=== PATIENT | female | born 1985 | race Caucasian/White ===

== ENCOUNTER 2023-01-05 04:40 | Emergency (ER) | payer OTHER ==
[2023-01-05 04:52] VITALS: RESP 16
--- NOTE | 2023-01-05 06:28 | ED ---
Extremity Problem HPI - General Chief complaint: Extremity Problem,Nontraumatic Stated complaint: Pulled Muscle Left leg - [facility] Time Seen by Provider: 01/05/23 06:27 Source: patient, RN notes reviewed Mode of arrival: wheelchair Limitations: no limitations - History of Present Illness Initial comments: This a 37-year-old female presents emergency Department chief complaint left calf pain. Patient states she was going up some larger metal steps when she went to push off and felt a sharp pain radiating up her leg. Patient states it's more calf down towards her Achilles denies any foot pain no ankle pain otherwise. Denies denies neck and sensation. Patient states she has full range of motion she has no pain at rest. - Related Data Previous Rx's Medication Instructions Recorded Ibuprofen [Motrin] 600 mg PO Q8HR PRN #20 tab 01/05/23 Allergies Allergy/AdvReac Type Severity Reaction Status Date / Time No Known Allergies Allergy Verified 01/05/23 04:52 Review of Systems ROS Statement: Those systems with pertinent positive or pertinent negative responses have been documented in the HPI. ROS Other: All systems not noted in ROS Statement are negative. Past Medical History Past Medical History: No Reported History History of Any Multi-Drug Resistant Organisms: None Reported Past Surgical History: Adenoidectomy Past Psychological History: No Psychological Hx Reported Smoking Status: Never smoker Past Alcohol Use History: Occasional Past Drug Use History: None Reported General Exam - General Exam Comments Initial Comments: Visual Physical Exam Vital signs reviewed General: Well-appearing, nontoxic, no acute distress. Head: Normocephalic, atraumatic Eyes: PERRLA, EOMI ENT: Airway patent Chest: Nonlabored breathing Skin: No visual rash, normal skin tone Neuro: Alert and oriented 3 Musculoskeletal: No gross abnormalities Course Vital Signs 01/05/23 04:47 Temperature 98.0 F Pulse Rate 67 Respiratory 16 Rate Blood Pressure 135/90 O2 Sat by Pulse 99 Oximetry Medical Decision Making - Medical Decision Making Was pt. sent in by a medical professional or institution (Dr. PA, FELLMONGERING MACHINE OPERATOR, urgent care, hospital, or halfway...) When possible be specific @ -No Did you speak to anyone other than the patient for history (EMS, parent, family, police, friend...)? What history was obtained from this source @ -No Did you review nursing and triage notes (agree or disagree)? Why? @ -I reviewed and agree with nursing and triage notes Were old charts reviewed (outside hosp., previous admission, EMS record, old EKG, old radiological studies, urgent care reports/EKG's, halfway records)? Report findings @ -No old charts were reviewed Differential Diagnosis (chest pain, altered mental status, abdominal pain women, abdominal pain men, vaginal bleeding, weakness, fever, dyspnea, syncope, headache, dizziness, GI bleed, back pain, seizure, CVA, palpatations, mental health, musculoskeletal)? @ -[calf strain, calf rupture, EKG interpreted by me (3pts min.). @ -As above X-rays interpreted by me (1pt min.). @ -X-ray shows calcaneus spur, otherwise no acute process of the tib-fib or foot CT interpreted by me (1pt min.). @ -None done U/S interpreted by me (1pt. min.). @ -None done What testing was considered but not performed or refused? (CT, X-rays, U/S, labs)? Why? @ -None What meds were considered but not given or refused? Why? @ -None Did you discuss the management of the patient with other professionals (professionals i.e. , PA, FELLMONGERING MACHINE OPERATOR, lab, RT, psych nurse, social media intern, dough cutting machine operator, teacher, complaint evaluation officer, case investigator)? Give summary @ -No Was smoking cessation discussed for >3mins.? @ -No Was critical care preformed (if so, how long)? @ -No Were there social determinants of health that impacted care today? How? (Homelessness, low income, unemployed, alcoholism, drug addiction, transportation, low edu. Level, literacy, decrease access to med. care, senior care, rehab)? @ -No Was there de-escalation of care discussed even if they declined (Discuss DNR or withdrawal of care, Hospice)? DNR status @ -No What co-morbidities impacted this encounter? (DM, HTN, Smoking, COPD, CAD, Cancer, CVA, ARF, Chemo, Hep., AIDS, mental health diagnosis, sleep apnea, morbid obesity)? @ -None Was patient admitted / discharged? Hospital course, mention meds given and route, prescriptions, significant lab abnormalities, going to OR and other pertinent info. @ -Discharge patient has good strength, normal range of motion patient has gastrocnemius strain, possible soleus injury, there is no evidence of complete rupture. Patient will follow-up with orthopedics, [facility] Undiagnosed new problem with uncertain prognosis? @ -No Drug Therapy requiring intensive monitoring for toxicity (Heparin, Nitro, Insulin, Cardizem)? @ -No Were any procedures done? @ -No Diagnosis/symptom? @ -Gastrocnemius strain Acute, or Chronic, or Acute on Chronic? @ -Acute Uncomplicated (without systemic symptoms) or Complicated (systemic symptoms)? @ -Uncomplicated Side effects of treatment? @ -No Exacerbation, Progression, or Severe Exacerbation? @ -No Poses a threat to life or bodily function? How? (Chest pain, [place], [place], pneumonia, PE, COPD, DKA, ARF, appy, cholecystitis, CVA, Diverticulitis, Homicidal, Suicidal, threat to staff... and all critical care pts) @ -No Disposition Clinical Impression: Strain of left calf muscle Disposition: HOME SELF-CARE Condition: Stable Instructions (If sedation given, give patient instructions): Muscle Strain (ED) Additional Instructions: Please return to the Emergency Department if symptoms worsen or any other concerns. Prescriptions: Ibuprofen [Motrin] 600 mg PO Q8HR PRN #20 tab PRN Reason: Pain Is patient prescribed a controlled substance at d/c from ED?: No Referrals: None,Stated [Primary Care Provider] - 1-2 days Gabriel Zendejas DO [Doctor of Osteopathic Medicine] - 1-2 days Time of Disposition: 07:41
--- NOTE | 2023-01-05 06:51 | XR ---
EXAMINATION TYPE: XR tibia fibula LT, XR foot complete LT DATE OF EXAM: 01/05/2023 CLINICAL HISTORY: Pain. TECHNIQUE: Two views of the left leg are obtained. 3 views left foot. COMPARISON: None. FINDINGS: There is no acute fracture or dislocation seen in the left tibia or fibula. The left knee and ankle joints appear within normal limits. The overlying soft tissue appears unremarkable. Images of the left foot show no acute displaced fracture. The joint spaces are preserved. Small size inferior calcaneal spur noted. Overlying Soft tissue is unremarkable. IMPRESSION: As above.
[2023-01-05] MEDS ORDERED: ACET/COD 300 MG/30 MG STARTER PACK 6 TAB BTL PO STA (07:40)
[2023-01-05 08:05] VITALS: BP 127/75; PULSE 65; TEMP 98.1
== END 2023-01-05 08:06 | disposition home or self-care (01) ==
LOC: EC 04:40
DX: S86.812A Strain of other muscle(s) and tendon(s) at lower leg level, left leg, initial encounter (principal); Z90.89 Acquired absence of other organs; X50.0XXA Overexertion from strenuous movement or load, initial encounter; Y93.89 Activity, other specified
CPT/HCPCS: 99283

== ENCOUNTER → 2024-03-15 | Outpatient (CLI) | payer BC ==
[2024-03-15 19:16] LABS: Anisocytosis (M) 2+; Basophils # (A) 0.06 X 10*3/uL (0.00-0.10); Basophils % (A) 0.8 %; Eosinophils # (A) 0.99 X 10*3/uL (0.04-0.35); Eosinophils % (A) 12.9 %; HCT 38.3 % (37.2-46.3); HGB 11.6 g/dL (12.0-15.0); Lymphocytes # (A) 3.29 X 10*3/uL (0.90-5.00); MCH 25.7 pg (27.0-32.0); MCHC 30.3 g/dL (32.0-37.0); MCV 84.9 FL (80.0-97.0); Monocytes # (A) 0.42 X 10*3/uL (0.20-1.00); Monocytes % (A) 5.5 %; NRBC Per 100 WBC 0 X 10*3/uL (0.00-0.01); Neutrophils # (A) 2.89 X 10*3/uL (1.80-7.70); Neutrophils % (A) 37.7 %; Platelet Count 205 X 10*3/uL (140-440); RBC 4.51 X 10*6/uL (4.10-5.20); RDW 24.1 % (11.5-14.5); WBC 7.66 X 10*3/uL (4.50-10.00)
[2024-03-15 19:21] LABS: Blood Urea Nitrogen 12.2 mg/dL (9.0-27.0); Carbon Dioxide 24.4 mmol/L (21.6-31.8); Chloride 104 mmol/L (96-109); Glucose 86 mg/dL (70-110); Potassium 4.5 mmol/L (3.5-5.5); Sodium 140 mmol/L (135-145)
== END | disposition home or self-care (01) ==
LOC: LABPAT 14:58
PROVIDERS: ATTEND Obstetrics & Gynecology
DX: Z01.812 Encounter for preprocedural laboratory examination (principal); N93.8 Other specified abnormal uterine and vaginal bleeding; D25.9 Leiomyoma of uterus, unspecified
CPT/HCPCS: 80051; 82565; 82947; 84520; 85025; 86850; 86900; 86901; 87086

== ENCOUNTER 2024-03-25 05:42 | Inpatient (IN) | payer BC ==
--- NOTE | 2024-03-22 11:38 | P.HPIHPCON ---
History of Present Illness H&P Date: 03/22/24 Chief Complaint: Abnormal uterine bleeding, pelvic pain Ms. Ricketts is a 38 year old G0 who presents for definitive surgical management of abnormal uterine bleeding and uterine fibroids causing significant pelvic pain and bulk symptoms. An ultrasound recently measured the uterus at 20.7 cm x 9cm. Recent pap smear was wnl. EMB was attempted and unsuccessful due to some cervical stenosis. Consent for Procedure: I have explained the operation/procedure to the patient, including the risks, benefits, side effects, alternative therapies (including not receiving the proposed treatment or service), the likelihood of the patient achieving his/her goals, and potential recuperation problems for the procedure/sedation/analgesia, as well as any blood products, if indicated. I also explained to the patient the risks, benefits and side effects of the alternatives, as well as the risks related to not receiving the proposed procedure, care, treatment, or services. Past Medical History Past Medical History: Blood Disorder Additional Past Medical History / Comment(s): UTERINE FIBROIDS. ANEMIA History of Any Multi-Drug Resistant Organisms: None Reported Past Surgical History: Adenoidectomy Past Anesthesia/Blood Transfusion Reactions: No Reported Reaction Smoking Status: Never smoker - Past Family History Father Family Medical History: No Reported History Medications and Allergies Home Medications Medication Instructions Recorded Confirmed Type Ferrous Sulfate [Iron] 325 mg PO DAILY 01/05/24 03/20/24 History Naproxen [Naprosyn] 500 mg PO BID 01/12/24 03/20/24 History diphenhydrAMINE HCL [Benadryl 25 mg PO DAILY 03/20/24 03/20/24 History Allergy] Allergies Allergy/AdvReac Type Severity Reaction Status Date / Time No Known Allergies Allergy Verified 03/20/24 15:42 Surgical - Exam Focused physical exam is performed. Patient is pleasant and conversing normally. Breathing non-labored. Abdomen soft, non-distended. Extremities non-tender and non-edematous. Assessment and Plan Assessment: 38 year old G0 presenting for surgical management of AUB-L and chronic pelvic pain Plan: The risks, benefits, and alternatives to total abdominal hysterectomy, bilateral salpingectomy are discussed with the patient including risk of bleeding, infection, damage to surrounding structures including bladder/bowel/ureters, and post-operative VTE. The patient understands these risks and desires to proceed with surgery as discussed. All questions are answered.
[2024-03-25] MEDS ORDERED: LIDOCAINE 1% (10MG/ML) FOR IV START INTRADERMA PRN (06:07)
[2024-03-25] MEDS ORDERED: MIDAZOLAM 2 MG/2 ML VIAL IV PRN (06:07)
[2024-03-25] MEDS ORDERED: HYDROmorphone 0.5 MG/0.5 ML SYRINGE IVP PRN (06:07)
[2024-03-25] MEDS: DEXAMETHASONE SOD PHOSPHATE 4 MG/ML 1 ML VIAL IV ONE (06:45)
[2024-03-25] MEDS: IV FLUID CONTINUATION 1,000 ML IV ONE ×2 (06:45→08:24)
[2024-03-25] MEDS: LACTATED RINGERS 1,000 ML IV SCH (06:45)
[2024-03-25] MEDS: ONDANSETRON 4 MG/2 ML VIAL IVP ONE (06:45)
[2024-03-25] MEDS: MIDAZOLAM 2 MG/2 ML VIAL IVP ONE (07:03)
[2024-03-25] MEDS ORDERED: diphenhydrAMINE 50 MG/ML 1 ML VIAL ONE (07:33)
[2024-03-25] MEDS ORDERED: NEOSTIGMINE 1 MG/ML 10 ML VIAL ONE (07:33)
[2024-03-25] MEDS ORDERED: SUCCINYLCHOLINE CHLORIDE 200 MG/10 ML VIAL IV ONE (07:33)
[2024-03-25] MEDS ORDERED: LIDOCAINE 1% INJ 10MG/ML (20 ML MDV) ONE (07:33)
[2024-03-25] MEDS ORDERED: GLYCOPYRROLATE 0.2 MG/ML 2 ML VIAL ONE (07:33)
[2024-03-25] MEDS ORDERED: fentaNYL (PF) 50 MCG/ML 2 ML AMP ONE (07:33)
[2024-03-25] MEDS ORDERED: KETOROLAC 15 MG/ML 1 ML VIAL ONE (07:33)
[2024-03-25] MEDS ORDERED: ROCURONIUM 10 MG/ML (5 ML VIAL) IV ONE (07:33)
[2024-03-25] MEDS ORDERED: HYDROmorphone (PF) 1 MG/ML ONE (07:33)
[2024-03-25] MEDS ORDERED: MIDAZOLAM 2 MG/2 ML VIAL ONE (07:33)
[2024-03-25] MEDS ORDERED: PROPOFOL 10 MG/ML 20 ML VIAL IV ONE (07:33)
--- NOTE | 2024-03-25 08:35 | P.ANPRN ---
Procedure Note - Anesthesia - Epidural/Spinal Spinal Date of Procedure: 03/25/24 Location of Patient: PreOp Indication: Acute Post-Operative Pain, Analgesia, Requested by Surgeon Sedation Type: Sedate with meaningful contact maintained Position: Sitting Catheter: None Narrative: After the informed consent was obtained and all the questions answered, Patient was positioned in sitting posture. The back was cleaned and draped after palpating the L3-L4 interspace. 3 mL of 1% lidocaine infiltrated into the aforementioned space. A 25-gauge Whittacre needle was introduced into the space and a clear flow of CSF was obtained. No blood was aspirated. 300 g of Duramorph and 25 g fentanyl drawn up with a Filter Needle and injected into the spinal space under aseptic precautions. Needle was withdrawn and the puncture shannon with a platelet dressed with Band-Aid. Patient tolerated the procedure very well with no apparent complications noted. Blood Aspirated: No Pain Paresthesia on Injection Noted: No Events: Uneventful and Well Tolerated
[2024-03-25] MEDS: droPERidol 5 MG/2 ML VIAL IVP ONE (09:35)
--- NOTE | 2024-03-25 09:37 | P.OP ---
Date of Procedure: 03/25/24 Preoperative Diagnosis: 1. Abnormal Uterine Bleeding 2. Uterine Leiomyoma 3. Pelvic Pain 4. Symtpomatic Anemia Postoperative Diagnosis: 1. Abnormal Uterine Bleeding 2. Uterine Leiomyoma 3. Pelvic Pain 4. Symtpomatic Anemia 5. Uterine weight 2040 grams (4.5 lbs) Procedure(s) Performed: Total Abdominal Hysterectomy, Bilateral Salpingectomy Implants: None Anesthesia: GERONIMO Surgeon: Marta Cardoso Estimated Blood Loss (ml): 450 IV fluids (ml): 1,500 Urine output (ml): 150 Pathology: other (uterus, bilatearl fallopian tubes, cervix) Condition: stable Disposition: floor Indications for Procedure: Ms. Ricketts is a 38 year old G0 with AUB-L and chronic pelvic pain who presents for surgical management with REJI, BS, possible JAVIER. The risks, benefits, and alternatives were discussed with the patient including risk of bleeding, infection, damage to surrounding structures including bladder/bowels/ureters, and post-operative VTE. The patient understands these risks and desires to proceed with surgery as scheduled. Operative Findings: 24-week sized uterus with multiple fibroids, grossly normal appearing fallopian tubes and ovaries. Unremarkable pelvis otherwise. Description of Procedure: The patient was taken back to the operating room where general anesthesia was found to be adequate. Two grams of Ancef were given for infection prophylaxis. The patient was placed in a supine position. Sequential compression stockings were placed on the patient's legs. The vagina was prepped with and a salazar was placed in the bladder. The abdomen was then prepped in the usual fashion. The patient was draped in the usual sterile fashion. A horizontal pfannensteil skin incision was made. The incision was carried down to the fascia with a bovie. The fascia was incised and extended superiorly and inferiorly. The superior and then inferior aspects of the fascia was grasped with the Brea clamps. The underlying muscle was dissected off sharply with the Werner scissors. Excellent hemostasis was achieved with the bovie. The peritoneum was found to be free of adherent bowel and entered sharply with the scalpel. The peritoneal incision was extended superiorly and inferiorly to the bladder reflection with good visualization of the bladder. The uterus was exteriorized for better visualization. The right fallopian tube was grasped at the fimbriated end, cut, and coagulated to the level of the uterine cornua with the Ligasure device. The right uteroovarian ligement was then coagulated and cut. The right rought ligament was then taken down to the level of the bladder. The bladder flap was developed with blunt and sharp dissection. This process was repeated on the right. The uterine arteries were skeletonized bilaterally and the ligasure was used to coagulate them. The bladder peritoneum was sharply and bluntly dissected off of the lower uterus. The uterosacral ligaments on both sides were clamped between Deacon clamps, incised, and ligated with 0-Polysorb. Two curved Deacon clamps were used to clamp just inferior to the cervix on either side, meeting in the middle. The Jody scissors were used to to amputate the cervix and uter us. The vaginal cuff angles were suture-ligated with 0-Polysorb and transfixed to the ipsilateral, uterosacral ligaments for vaginal support. The middle portion of the vaginal cuff was closed with an additional figure of eight suture of 0-Polysorb. The abdomen was then irrigated with warm saline. The pedicles were all hemostatic. Clear urine was noted in the salazar bag. The fascial layer was closed with 0-Vicryl in a running fashion. The subcutaneous layer was reapproximated with 2-0 Chromic in a running fashion. The skin was closed with 4-0 Monocryl in a subcuticular fashion. The patient tolerated the procedure well. All the counts were correct times two. The patient was taken to the recovery room in a stable condition.
[2024-03-25] MEDS: ACETAMINOPHEN TAB 325 MG TAB PO SCH (12:22)
[2024-03-25] MEDS: ACETAMINOPHEN TAB 500 MG TAB PO SCH (12:25)
[2024-03-25] MEDS: ONDANSETRON 4 MG/2 ML VIAL IVP PRN (17:08)
[2024-03-25] MEDS: KETOROLAC 15 MG/ML 1 ML VIAL IVP SCH (17:08)
[2024-03-25] MEDS: SENNOSIDES-DOCUSATE SODIUM 1 EACH TAB PO SCH (22:47)
[2024-03-26 09:12] LABS: Anisocytosis Moderate; Basophils % (A) 0 %; Eosinophils # (A) 0.2 k/uL (0-0.7); Eosinophils % (A) 2 %; HCT 32.1 % (34.0-46.0); HGB 9.6 gm/dL (11.4-16.0); Hypochromasia Moderate; Lymphocytes # (A) 2.5 k/uL (1.0-4.8); Lymphocytes % (A) 29 %; MCH 25.8 pg (25.0-35.0); MCHC 29.9 g/dL (31.0-37.0); MCV 86.5 fL (80.0-100.0); Mean Platelet Volume 12.7; Microcytosis Slight; Monocytes # (A) 0.6 k/uL (0-1.0); Monocytes % (A) 6 %; Neutrophils # (A) 5.4 k/uL (1.3-7.7); Neutrophils % (A) 61 %; Platelet Count 165 k/uL (150-450); RBC 3.71 m/uL (3.80-5.40); RDW 20.1 % (11.5-15.5); WBC 8.8 k/uL (3.8-10.6)
--- NOTE | 2024-03-26 10:43 | P.PN ---
Progress Note - Text Progress Note Date: 03/26/24 Postoperative day 1 status post total abdominal hysterectomy under general endotracheal anesthesia, and intrathecal morphine given for postoperative analgesia, patient doing well, there is no anesthesia related complications, Patient had no headache, vital signs stable , Assessment and plan= postop day 1 , doing well there is no anesthesia related complication.
[2024-03-26] MEDS: IBUPROFEN 600 MG TAB PO SCH (11:58)
--- NOTE | 2024-03-26 12:13 | P.PN ---
Subjective Progress Note Date: 03/26/24 Principal diagnosis: s/p REJI, CASSIUS Patient doing well this morning, no acute events overnight. Pain is well controlled. Patient has ambulated to and from bathroom, she was able to void spontaneously. She has not yet passed flatus. She is eating and drinking without nausea or vomiting. She denies chest pain, shortness of breath, fevers, chills, pain/swelling in the legs. Objective - Vital Signs Vital signs: Vital Signs Temp 98.8 F 03/26/24 08:30 Pulse 64 03/26/24 08:30 Resp 16 03/26/24 08:30 BP 104/67 03/26/24 08:30 Pulse Ox 100 03/26/24 08:30 FiO2 Intake & Output 03/25/24 03/26/24 03/26/24 18:59 06:59 18:59 Intake Total 1625 Output Total 1100 1150 700 Balance 525 -1150 -700 Weight 108.3 kg Intake: IV 1625 Output: Urine 650 1150 700 Uretheral (Ingram) 350 500 Estimated Blood Loss 450 Other: # Voids 1 - Exam Focused physical exam is performed. Patient appears comfortable. Breathing is non-labored. Incision is clean/dry/intact. Extremities are non-tender and non- edematous. - Labs CBC & Chem 7: 03/26/24 08:49 Labs: Abnormal Lab Results - Last 24 Hours (Table) 03/26/24 Range/Units 08:49 RBC 3.71 L (3.80-5.40) m/uL Hgb 9.6 L (11.4-16.0) gm/dL Hct 32.1 L (34.0-46.0) % MCHC 29.9 L (31.0-37.0) g/dL RDW 20.1 H (11.5-15.5) % Assessment and Plan Assessment: 38 year old G0 presenting POD#1 s/p CASSIUS MENDOZA for AUB-L and chronic pelvic pain Plan: 1. Postoperative. Patient meeting milestones appropriately. Continue to monitor. Encouraged ambulation and incentive spirometer use. Dispo: Anticipate discharge home tomorrow.
[2024-03-26 13:24] LABS: Large Platelets Present
[2024-03-26] MEDS: FERROUS SULFATE 325 MG TAB PO SCH (15:37)
[2024-03-26] MEDS: SIMETHICONE 80 MG CHEWABLE PO PRN (20:11)
[2024-03-27 08:07] VITALS: BP 120/84; PULSE 62; RESP 17; TEMP 98.4
--- NOTE | 2024-03-27 08:39 | P.DS ---
Providers Date of admission: 03/25/24 05:42 Expected date of discharge: 03/27/24 Attending physician: Marta Cardoso MD Primary care physician: Eamon Salmeron [facility] Course: Ms. Ricketts is a 38 year old G0 who is POD#2 s/p REJI, BS for AUB-L. The patient is doing well this morning and had no acute events overnight. She has no complaints this morning. She reports minimal vaginal spotting, passing flatus, has had a bowel movement, voiding without difficulty, ambulating, and eating/drinking without nausea or vomiting. She denies chest pain, shortness of breathing, fevers, or chills overnight. She denies pain or swelling in the legs. Postoperative restrictions are reviewed with the patient including pelvic rest for 6 weeks, no lifting heavier than 15 pounds for 6 weeks. The patient is encouraged to call the office if she experiences any heavy bleeding, foul- smelling discharge, or any if she has any other concerns. She will follow up in the office with in 2 weeks for postoperative exam. She will go home with motrin, tylenol, a 3-day supply of oxycodone, ferrous sulfate, and a stool softener. All questions are answered. Assessment: 38 year old G0 POD#2 s/p CASSIUS MENDOZA Patient Condition at Discharge: Good Plan - Discharge Summary Discharge Rx Participant: No New Discharge Prescriptions: New polyethylene glycoL 3350 [Miralax] 17 gm PO DAILY PRN #527 gm PRN Reason: Constipation Ferrous Sulfate [Iron (65 MG Elemental)] 325 mg PO DAILY #30 tab Ibuprofen [Motrin] 600 mg PO Q6HR PRN #30 tab PRN Reason: Mild Pain (Scale 1 To 3) oxyCODONE HCL [Roxicodone] 5 mg PO Q6HR PRN 3 Days #12 tab PRN Reason: Breakthrough Pain Acetaminophen Tab [Tylenol] 650 mg PO Q6H PRN #30 tab PRN Reason: Mild Pain (Scale 1 To 3) No Action Ferrous Sulfate [Iron] 325 mg PO DAILY diphenhydrAMINE HCL [Benadryl Allergy] 25 mg PO DAILY Naproxen [Naprosyn] 500 mg PO BID Discharge Medication List Ferrous Sulfate [Iron] 325 mg PO DAILY 01/05/24 [History] Naproxen [Naprosyn] 500 mg PO BID 01/12/24 [History] diphenhydrAMINE HCL [Benadryl Allergy] 25 mg PO DAILY 03/20/24 [History] Acetaminophen Tab [Tylenol] 650 mg PO Q6H PRN #30 tab 03/27/24 [Rx] Ferrous Sulfate [Iron (65 MG Elemental)] 325 mg PO DAILY #30 tab 03/27/24 [Rx] Ibuprofen [Motrin] 600 mg PO Q6HR PRN #30 tab 03/27/24 [Rx] oxyCODONE HCL [Roxicodone] 5 mg PO Q6HR PRN 3 Days #12 tab 03/27/24 [Rx] polyethylene glycoL 3350 [Miralax] 17 gm PO DAILY PRN #527 gm 03/27/24 [Rx] Follow up Appointment(s)/Referral(s): Marta Cardoso MD [STAFF PHYSICIAN] - 2 Weeks Activity/Diet/Wound Care/Special Instructions: Postoperative Instructions 1. No heavy lifting or straining (exercising) until after 6 week checkup. 2. Do not resume sexual relations for 6 weeks or longer if uncomfortable. 3. Keep abdominal incision clean and dry: You may wear a dressing if more comfortable. 4. Keep any areas repaired with stitches clean and dry. 5. Call the office, , within the next week to make appointment for your 2 week checkup 6. Report any of the following occurrences to the doctor promptly: a. Heavy, excessive bleeding b. Chills, fever c. Burning or frequency of urination d. Pain or redness around the incisions Discharge Disposition: HOME SELF-CARE
== END 2024-03-27 10:20 | disposition home or self-care (01) | DRG 743 ==
LOC: 2ORMAIN 05:42 → 4FBP 10:16
PROVIDERS: ADMIT Obstetrics & Gynecology; ATTEND Obstetrics & Gynecology
PROC: 0UT70ZZ Resection of Bilateral Fallopian Tubes, Open Approach (ICD-10-PCS; principal; 2024-03-25 07:30)
PROC: 0UT90ZZ Resection of Uterus, Open Approach (ICD-10-PCS; principal; 2024-03-25 07:30)
DX: D25.9 Leiomyoma of uterus, unspecified (principal); N93.8 Other specified abnormal uterine and vaginal bleeding; G89.29 Other chronic pain; R10.2 Pelvic and perineal pain; D64.9 Anemia, unspecified; Z28.310 Unvaccinated for COVID-19; Z28.21 Immunization not carried out because of patient refusal
CPT/HCPCS: 81025; 85025; 88307